=== PATIENT | female | born 1970 | race Caucasian/White ===

== ENCOUNTER 2021-03-20 18:09 | Emergency (ER) | payer BC ==
[2021-03-20] MEDS ORDERED: Acetaminophen/HYDROcodone 325-10 MG Tab PO ONE (18:45)
[2021-03-20] MEDS ORDERED: HYDROmorphone 1 MG/ML Syringe IVPUSH ONE ×2 (18:48→18:49)
[2021-03-20] MEDS ORDERED: Take Home: Acetaminophen/HYDROcodone 325-5 MG, 5 Tab Pack PO ONE (19:02)
--- NOTE | 2021-03-20 20:55 | EDM.PDOC ---
ED HPI GENERAL MEDICAL PROBLEM - General Chief Complaint: Upper Extremity Injury/Pain Stated Complaint: POSSIBLE BROKEN WRIST Time Seen by Provider: 03/20/21 18:45 Source of Information: Reports: Patient History Limitations: Reports: No Limitations - History of Present Illness INITIAL COMMENTS - FREE TEXT/NARRATIVE: Pt. presents to ER with complaints of fracture to L wrist. She states that she was getting out of a boat and slipped on some [place], causing her to fall and injure her wrist. She states that this happened shortly before presenting to ER. She denies striking her head, and denies any neck pain or discomfort elsewhere. Denies any pain in upper arm or shoulder. She denies any numbness/tinging in the hand/fingers or the L upper extremity. Pt. 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 She states that she has consumed about 6 beers today. She was driven to the ER by a sober local intermodal truck driver. Onset: Today Onset Date: 03/20/21 Location: Reports: Upper Extremity, Left Quality: Reports: Ache, Sharp, Throbbing Severity: Mild Improves with: Reports: Rest Worsens with: Reports: Movement Left Wrist Pain Score (Numeric/FACES): 4 - Related Data Allergies Allergy/AdvReac Type Severity Reaction Status Date / Time No Known Allergies Allergy Verified 03/20/21 18:33 Home Meds: Home Meds . [No Known Home Meds] 03/20/21 [History] Past Medical History Musculoskeletal History: Reports: Fracture Social & Family History - Tobacco Use Tobacco Use Status *Q: Current Every Day Tobacco User Years of Tobacco use: 36 Packs/Tins Daily: 1 - Recreational Drug Use Recreational Drug Use: No Review of Systems - Review of Systems Review Of Systems: Comprehensive ROS is negative, except as noted in HPI. Musculoskeletal: Reports: Arm Pain ED EXAM, GENERAL - Physical Exam Exam: See Below Exam Limited By: Uncooperative General Appearance: Alert, WD/WN, No Apparent Distress Extremities: Joint Swelling (L wrist), Other (obvious deformity to L distal forarm/wrist.) Course - Vital Signs Last Recorded V/S: Last Vital Signs Temp 37.2 C 03/20/21 18:40 Pulse 91 03/20/21 18:40 Resp 14 03/20/21 18:40 BP 123/81 03/20/21 18:40 Pulse Ox 98 03/20/21 18:40 - Orders/Labs/Meds Orders: Active Orders 24 hr Category Date Time Status Wrist Comp Min 3V Lt [CR] Stat Exams 03/20/21 18:33 Taken Meds: Medications Discontinued Medications Generic Name Dose Route Start Last Admin Trade Name Kushal PRN Reason Stop Dose Admin Hydrocodone Bitart/Acetaminophen 1 tab 03/20/21 18:45 03/20/21 19:03 Acetaminophen/Hydrocodone 325-10 Mg Tab PO 03/20/21 18:46 Not Given ONETIME ONE Hydrocodone Bitart/Acetaminophen 1 packet 03/20/21 19:02 03/20/21 19:05 Take Home: Acetaminophen/Hydrocodone 325-5 Mg, 5 Tab Pack PO 03/20/21 19:03 1 packet ONETIME ONE Administration Hydromorphone HCl 1 mg 03/20/21 18:48 Hydromorphone 1 Mg/Ml Syringe IVPUSH 03/20/21 18:49 ONETIME ONE Hydromorphone HCl 1 mg 03/20/21 18:49 03/20/21 19:04 Hydromorphone 1 Mg/Ml Syringe IVPUSH 03/20/21 18:50 Not Given ONETIME ONE - Radiology Interpretation Free Text/Narrative:: Acute multi fragmentary fracture involving the distal left radius with extension into the radiocarpal joint. There is impaction, angulation and impaction. There are multiple displaced fracture fragments. - Re-Assessments/Exams Free Text/Narrative Re-Assessment/Exam: Pt. refused starting any IV or IV pain medication. [facility] was contacted (Mary) who reviewed the images and agreed the injury requires immediate reduction and likely surgical fixation, depending on how the reduction goes. Pt. was informed who adamantly refuses transfer and reduction in [place]. Pt. was informed that she has a serious injury requiring immediate medication attention and she understands this, as does her daughter who accompanies her. She verbalizes understanding of this, stating that she needs to discuss the injury with her who she is unable to reach at this time, as he is fishing [place] [facility]. Departure - Departure Time of Disposition: 19:30 Disposition: Against Medical Advice 07 Clinical Impression: Distal radius fracture, left - Discharge Information Instructions: Wrist Fracture Treated With ORIF, Care After Referrals: PCP,Not In Area [Primary Care Provider] - Forms: ED Department Discharge Additional Instructions: You have been advised to have this injury reduced and potentially surgically repaired locally, both by staff from this facility and Ortho staff at [facility] in [place] and have refused. You are free to return to this facility or go to [facility] in [place]/any other facility if you wish at any time. I advise you to follow-up regarding this injury ANKITA. Keep splint on Lortab 5/325mg 1 every 4-6 hours as needed for pain Sepsis Event Note (ED) - Evaluation Sepsis Screening Result: No Definite Risk - Focused Exam Vital Signs: Vital Signs Temp Pulse Resp BP Pulse Ox 03/20/21 18:40 37.2 C 91 14 123/81 98 - Problem List Review Problem List Initiated/Reviewed/Updated: Yes - My Orders Last 24 Hours: My Active Orders 03/20/21 18:33 Wrist Comp Min 3V Lt [CR] Stat - Assessment/Plan Last 24 Hours: My Active Orders 03/20/21 18:33 Wrist Comp Min 3V Lt [CR] Stat Plan: Pt. unfortunately refused treatment for her fracture. She does admit to drinking, but is alert to time, date, and place. She was able to relate where she was from, the specifics of a previous injury to her other wrist requiring surgery, and the specifics of why she refuses treatment of this injury. 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 She understands that this injury could result in permanent loss in function, chronic pain, and potential extremity loss if the fracture of the extremity is not stabilized and she develops a loss or circulation in the hand. She understands that this is a time sensitive injury, and waiting to have it fixed back home in [place] may be impossible, and waiting likely will result is longer recovery/potential permanent disability. This was discussed at length with the patient, her daughter, as well as the provider from [facility]. A Volar fiberglas splint was placed on the hand/wrist to stabilize it and prevent further injury. Although the patient admits to drinking, she is alert to time date and place and is certainly too alert to compel or force her to undergo further evaluation and treatment. She was given an open ended invitation to return to either this facility at any time tonight or in subsequent days, or to go to a facility, such as [facility] in [place], for definitive treatment of the injury. She signed an AMA form. She states that she may go to [facility] tomorrow. [facility] staff stated that they will leave a note in her chart discussing the specifics of their being contacted, and potential of patient coming to be evaluated tomorrow. Pt. was made aware that she could certainly return to this facility or call 911, and that she could be transferred to [facility] by ambulance if transpor tation is needed.
--- NOTE | 2021-03-21 07:53 | CR ---
[id number] RAD/RAD Wrist Left 3V Min EXAM: 3 VIEWS LEFT WRIST. INDICATION: FALL, DEFORMITY TO LEFT WRIST. COMPARISON: None. DISCUSSION: Acute multi fragmentary fracture involving the distal left radius with extension into the radiocarpal joint. There is impaction, angulation and displacement. There are multiple displaced fracture fragments. IMPRESSION: 1. As above. Leonardo Minaya DO 03/21/21 0916 Thank you for allowing us to participate in the care of your patient.
== END 2021-03-20 19:15 | disposition left against medical advice (07) ==
LOC: VM.ED 18:09
DX: S52.502A Unspecified fracture of the lower end of left radius, initial encounter for closed fracture (principal); Z72.0 Tobacco use; W01.0XXA Fall on same level from slipping, tripping and stumbling without subsequent striking against object, initial encounter; Y92.828 Other wilderness area as the place of occurrence of the external cause
CPT/HCPCS: 73110-LT; 99283; 99283-25; A9270-GY